=== PATIENT | female | born 1955 | race Caucasian/White ===

== ENCOUNTER → 2017-02-13 | Outpatient (CLI) | payer BC ==
[~2017-02-13] MED LIST: ASPI81TA85 PO; CALCTAB68 PO; DRIS50002 PO; LISI20TA PO; MELO15TA4 PO; METO-209 PO; NORV5TAB PO; PRAV10TA PO; ULTR50TA PO; ZOLO100T PO
--- NOTE | 2017-02-13 11:26 | REP ---
BILATERAL MAMMOGRAM: FAMILY HISTORY: Breast cancer in sister and maternal grandmother. Bilateral mammography performed in the MLO and CC projections. Comparison made with multiple prior exams most recent of which is 02/14/2016. No mass is seen and there is no architectural distortion bilaterally. Focal tiny calcifications are seen in the upper inner left breast. Recommend magnification views to further evaluate. IMPRESSION: ACR 0 incomplete. Focal tiny calcifications in the upper inner left breast. Recommend magnification views to further evaluate. This mammogram was interpreted with the aid of an FDA-approved computer-aided detection system. The patient states she/he had a clinical breast exam in 01/2017. The patient letter being requested is M0.
== END ==
LOC: M WHC 09:29
PROVIDERS: ATTEND Nurse Practitioner Family
DX: Z12.31 Encounter for screening mammogram for malignant neoplasm of breast (principal); R92.8 Other abnormal and inconclusive findings on diagnostic imaging of breast

== ENCOUNTER → 2017-02-13 | Outpatient (REF) | payer BC | LOC: M SFHCWAGY 10:09 | PROVIDERS: ATTEND Nurse Practitioner Family | DX: Z12.4 Encounter for screening for malignant neoplasm of cervix (principal) ==

== ENCOUNTER → 2017-02-19 | Outpatient (CLI) | payer BC ==
--- NOTE | 2017-02-19 11:20 | REP ---
DIAGNOSTIC MAMMOGRAM LEFT BREAST: Multiple magnification views left breast performed and correlated with recent mammogram 02/13/2017. There are clustered microcalcifications in the upper inner left breast which are pleomorphic and not definitely benign. Recommend stereotactic biopsy. IMPRESSION: ACR IV suspicious. Clustered pleomorphic microcalcifications in the upper inner left breast. Recommend stereotactic biopsy. BI-RADS/ACR category 4 mammogram. Suspicious abnormality - biopsy should be considered. Usually requires biopsy. This mammogram was interpreted with the aid of an FDA-approved computer-aided detection system. A. Negative x-ray reports should not delay biopsy if a dominant or clinically suspicious mass is present. B. Four to eight percent of cancers are not identified by x-ray. C. Adenosis and dense breasts may obscure an underlying neoplasm. The patient letter being requested is M4. Signed by John Riojas MD 02/19/2017 05:12 P
== END ==
LOC: M RAD 09:52
PROVIDERS: ATTEND Nurse Practitioner Family
DX: R92.8 Other abnormal and inconclusive findings on diagnostic imaging of breast (principal)

== ENCOUNTER → 2017-03-18 | Outpatient (CLI) | payer BC ==
[~2017-03-18] MED LIST changes: +LIDOCAINE 1% MDV 20ML VIAL As Ordered ONE; -METO-209 PO; +METO1TAB33 PO; -PRAV10TA PO; +PRAV10TA4 PO; -ULTR50TA PO; +ULTR50TA8 PO
--- NOTE | 2017-03-18 13:45 | REP ---
DIGITAL DIAGNOSTIC UNILATERAL LEFT BREAST MAMMOGRAPHY WITH CAD: Two views. HISTORY: Marker clip placement views. The patient is status post stereotactic needle biopsy for microcalcific grouping. Comparison mammography February 19, 2017 and February 13, 2017. MAMMOGRAPHIC FINDINGS: The marker clip is in good position. There is a 2.8 cm nodule at the biopsy site consistent with a hematoma. The microcalcifications are no longer visible. IMPRESSION: Marker clip in good position. A small hematoma seen. Microcalcifications no longer visible. Signed by López Perales MD 03/18/2017 02:31 P
--- NOTE | 2017-03-18 13:58 | REP ---
SPECIMEN RADIOGRAPHY, LEFT BREAST SPECIMEN: SINGLE VIEW HISTORY: Stereotactic needle biopsy for microcalcification. FINDINGS: Specimen radiography demonstrates that specimen tube #2 contains the entire grouping of polymorphic microcalcifications from prior diagnostic mammography. IMPRESSION: Specimen radiography shows the microcalcific target within the specimen #2. Signed by López Perales MD 03/18/2017 02:31 P
--- NOTE | 2017-03-18 16:44 | REP ---
STEREOTACTIC LEFT BREAST BIOPSY: The procedure was performed under the direct supervision of Dr. Perales. The patient has a history of clustered pleomorphic microcalcifications in the upper inner to left breast seen on a previous mammogram dated 02/19/2017. The risks and benefits of the procedure were explained to the patient and informed consent was obtained. A cranial caudal approach was utilized. The calcifications were localized using stereotactic mammographic guidance. The skin was prepped and draped in a sterile fashion 1% Xylocaine was used as a local anesthetic. An 8-gauge suction assisted Mammotome needle was inserted and 6 core biopsy samples were obtained. Specimen radiograph demonstrates the calcifications to be within the specimen. A marker clip was placed at the biopsy site. The patient tolerated the procedure well and there were no immediate complications. After the appropriate amount of monitored convalescence the patient was discharged from the department. Reviewed by ARELY Lynch 03/19/2017 04:25 PEdited and Signed by López Perales MD 03/19/2017 04:44 P
== END ==
LOC: M RADPRO 11:57
PROVIDERS: ATTEND Surgery
DX: D24.2 Benign neoplasm of left breast (principal); Z87.891 Personal history of nicotine dependence; Z88.0 Allergy status to penicillin; Z79.82 Long term (current) use of aspirin; Z79.899 Other long term (current) drug therapy

== ENCOUNTER → 2018-02-22 | Outpatient (CLI) | payer OTHER | LOC: M WHC 09:43 | DX: Z12.31 Encounter for screening mammogram for malignant neoplasm of breast (principal); Z01.419 Encounter for gynecological examination (general) (routine) without abnormal findings (principal); Z78.0 Asymptomatic menopausal state; Z85.42 Personal history of malignant neoplasm of other parts of uterus; Z80.3 Family history of malignant neoplasm of breast; Z92.89 Personal history of other medical treatment; N89.8 Other specified noninflammatory disorders of vagina; Z12.12 Encounter for screening for malignant neoplasm of rectum | CPT/HCPCS: 77067; G0123 ==

== ENCOUNTER → 2018-02-22 | Outpatient (REF) | payer OTHER | LOC: M SFHCWAGY 09:59 | DX: Z01.419 Encounter for gynecological examination (general) (routine) without abnormal findings (principal); N89.8 Other specified noninflammatory disorders of vagina | CPT/HCPCS: G0123 ==

== ENCOUNTER → 2019-02-23 | Outpatient (REF) | payer MEDICARE ==
[~2019-02-23] MED LIST changes: +ALEV220T22 PO; +CALCCAP4 PO; -DRIS50002 PO; +DRIS50003 PO; +EFFE150C2 PO; -LIDOCAINE 1% MDV 20ML VIAL As Ordered ONE; +MELO15TA28 PO; -MELO15TA4 PO
== END ==
LOC: M SFHCWAGY 10:09
PROVIDERS: ATTEND Nurse Practitioner Family
DX: Z12.4 Encounter for screening for malignant neoplasm of cervix (principal); Z77.9 Other contact with and (suspected) exposures hazardous to health

== ENCOUNTER → 2019-02-23 | Outpatient (CLI) | payer MEDICARE ==
--- NOTE | 2019-02-23 12:06 | REPMRS ---
Patient History The patient states she had a clinical breast exam in 01/2019. Patient is postmenopausal and has history of endometrial cancer at age 57. Family history of breast cancer at age 48 in sister, breast cancer at age 50 or over in maternal grandmother, breast cancer at age 63 in sister. Benign radio exam breast specimen of the left breast, March 18, 2017. Benign stereotatic loc for ea lesion of the left breast, March 18, 2017. No Hormone Replacement Therapy Digital Woman Screen Mammo: February 23, 2019 - Exam #: [id number] Bilateral CC and MLO view(s) were taken. Technologist: Fatoumata Go, Technologist Prior study comparison: February 22, 2018, bilateral digital woman screen mammo performed at [facility]. February 19, 2017, left breast digital mammo diagnostic unilateral, performed at [facility]. FINDINGS: There are scattered fibroglandular densities. Bilateral screening digital mammogram with tomosynthesis: Additionally the prior study of 01/09/2014 is reviewed. The patient states that there are no palpable abnormalities or other breast complaints. The patient's Tyrer-Cuzieck Lifetime Breast Carcinoma Risk is:15.4%. There is no interval development of dominant mass, areas of architectural distortion, or clustered microcalcification typical of malignancy. There is a biopsy marking clip with a small adjacent parenchymal scar superomedially in the left breast, unchanged from 02/22/2018. There are no additional findings on tomosynthesis. No significant changes when compared with prior studies. Assessment: BI-RADS/ACR category 1 mammogram. Negative Mammogram. Recommendation Routine screening mammogram in 1 year (for women over age 40). This mammogram was interpreted with the aid of an FDA-approved computer-aided dectection system. A. Negative x-ray reports should not delay biopsy if a dominant or clinically suspicious mass is present. B. Not all cancers are identified by mammography. C. Adenosis and dense breast may obscure an underlying neoplasm. Electronically Signed By: John Gutierrez M.D. 02/23/19 [id number]
--- NOTE | 2019-02-24 15:16 | DEXA ---
AP SPINE L1 - L4 1.367 1.4 3.0 LT FEMUR TOTAL 0.978 -0.2 1.0 LT NECK 0.961 -0.6 0.9 RT FEMUR TOTAL 0.843 -1.3 -0.1 RT NECK 0.789 -1.8 -0.3 TOTAL BODY TOTAL OTHER COMMENTS: Normal bone densitometry of the spine. Normal bone densitometry of the left hip. There is low bone density of the right hip. The density of the spine has increased 23.3% since the initial exam on 06/06/2008. The spine density has increased 8.9% since the most recent exam on 11/14/2011. The density of the left hip has decreased 7.6% since the initial exam on 06/06/2008. The density of the left hip has decreased 10.3% since the most recent exam on 11/14/2011. The density of the right hip has decreased 10.8% since the initial exam on 06/06/2008. The density of the right hip has decreased 12.3% since the most recent exam on 11/04/2011. FOLLOW-UP: Recommendation for the next bone density exam: 2 years. KERRY
== END ==
LOC: M WHC 09:38
PROVIDERS: ATTEND Nurse Practitioner Family
DX: Z12.31 Encounter for screening mammogram for malignant neoplasm of breast (principal); N95.9 Unspecified menopausal and perimenopausal disorder; Z78.0 Asymptomatic menopausal state; Z85.44 Personal history of malignant neoplasm of other female genital organs; Z80.3 Family history of malignant neoplasm of breast; Z86.018 Personal history of other benign neoplasm; Z91.89 Other specified personal risk factors, not elsewhere classified; Z85.42 Personal history of malignant neoplasm of other parts of uterus; Z12.12 Encounter for screening for malignant neoplasm of rectum; Z08 Encounter for follow-up examination after completed treatment for malignant neoplasm; Z90.710 Acquired absence of both cervix and uterus
CPT/HCPCS: 77063; 77067; 77080; 82270; G0101; G0123

== ENCOUNTER → 2019-09-23 | Outpatient (CLI) | payer MEDICARE ==
[~2019-09-23] MED LIST changes: -LISI20TA PO; +LISI20TA19 PO
--- NOTE | 2019-09-23 11:30 | REP ---
Three-phase bone scan of the knees: History: Right knee pain. The patient relates a fall 1-1/2 months ago. Bilateral knee replacements approximately 5 years ago. Technique: 21.7 mCi technetium 99m MDP is injected and standard three-phase imaging of the knees is acquired. Scintigraphic findings: Anterior and posterior flow images and blood pool images demonstrate mild hyperemia about the components of the right knee arthroplasty compared to the left. On delayed scan images, there is asymmetry as well with increased uptake at the prosthesis bone interface for the femoral component of the right knee arthroplasty. This is significantly more avid than the interface on the left. There is also increased uptake at the tibial component interface asymmetrically with the right but this is less compelling. Impression: Asymmetric increased uptake about the right knee arthroplasty involving the femoral and to a lesser extent tibial components. I cannot exclude loosening or perhaps stress injury. The distal femoral uptake is as prominent medially as it is laterally. Electronically Signed by López Perales MD 09/23/2019 06:35 P
== END ==
LOC: M RAD 07:26
PROVIDERS: ATTEND Orthopaedic Surgery
DX: M25.561 Pain in right knee (principal); Z47.1 Aftercare following joint replacement surgery
CPT/HCPCS: 78315; A9503

== ENCOUNTER 2020-03-25 08:20 | Inpatient (IN) | payer MEDICARE ==
[~2020-03-25 08:20] MED LIST changes: -ASPI81TA85 PO; +ASPI81TA86 PO; -LISI20TA19 PO; +LISI20TA35 PO
[2020-03-25] MEDS ORDERED: PANTOPRAZOLE 40MG VIAL (C9113 PER 1) ONE ×2 (11:59→21:14)
[2020-03-25] MEDS ORDERED: ONDANSETRON 4MG/2ML VIAL ONE (21:14)
[2020-03-25] MEDS ORDERED: PRAVASTATIN 20 MG TAB ONE (21:14)
[2020-03-26] MEDS ORDERED: ACETAMINOPHEN TAB 650MG DOSE (2X325MG) ONE ×2 (00:05→20:46)
[2020-03-26] MEDS ORDERED: PANTOPRAZOLE 40MG VIAL (C9113 PER 1) ONE ×5 (02:26→20:46)
[2020-03-26] MEDS ORDERED: VENLAFAXINE **XR** 75MG CAPSULE ONE (09:38)
[2020-03-26] MEDS ORDERED: PRAVASTATIN 10 MG TAB ONE (13:00)
[2020-03-26] MEDS ORDERED: POTASSIUM CHLORIDE 10 MEQ SR TABLET ONE (13:52)
[2020-03-26] MEDS ORDERED: ONDANSETRON 4MG/2ML VIAL ONE (15:03)
[2020-03-26] MEDS ORDERED: PRAVASTATIN 20 MG TAB ONE (20:46)
[2020-03-27] MEDS ORDERED: ACETAMINOPHEN TAB 650MG DOSE (2X325MG) ONE (00:32)
[2020-03-27] MEDS ORDERED: GABAPENTIN 400 MG CAP ONE (00:32)
[2020-03-27] MEDS ORDERED: LEVEMIR (INSULIN DETEMIR) 1 UNITS/0.01ML ONE (00:32)
[2020-03-27] MEDS ORDERED: PANTOPRAZOLE 40MG VIAL (C9113 PER 1) ONE ×2 (02:02→07:50)
[2020-03-27] MEDS ORDERED: POTASSIUM CHLORIDE 10 MEQ SR TABLET ONE (09:16)
[2020-03-27] MEDS ORDERED: VENLAFAXINE **XR** 75MG CAPSULE ONE (09:16)
[2020-04-29 07:14] LABS: HEMATOCRIT 39.3 % (36.0-47.0); HEMOGLOBIN 12.7 g/dl (12.0-15.5); MEAN CORPUSCULAR HEMOGLOBIN 28.5 pg (27.0-33.0); MEAN CORPUSCULAR HGB CONC 32.3 g/dl (32.0-36.5); MEAN CORPUSCULAR VOLUME 88.3 fl (80.0-96.0); PLATELET COUNT, AUTOMATED 262 10^3/uL (150-450); RED BLOOD COUNT 4.45 10^6/uL (4.00-5.40); WHITE BLOOD COUNT 9.7 10^3/uL (4.0-10.0)
[2020-05-02 11:49] LABS: HEMATOCRIT 37.2 % (36.0-47.0); MEAN CORPUSCULAR HEMOGLOBIN 28.6 pg (27.0-33.0); MEAN CORPUSCULAR HGB CONC 32.3 g/dl (32.0-36.5); MEAN CORPUSCULAR VOLUME 88.8 fl (80.0-96.0); PLATELET COUNT, AUTOMATED 259 10^3/uL (150-450); RED BLOOD COUNT 4.19 10^6/uL (4.00-5.40); WHITE BLOOD COUNT 8.6 10^3/uL (4.0-10.0)
[2020-05-03 06:49] LABS: HEMATOCRIT 31.5 % (36.0-47.0); HEMOGLOBIN 10.1 g/dl (12.0-15.5); MEAN CORPUSCULAR HEMOGLOBIN 28.9 pg (27.0-33.0); MEAN CORPUSCULAR HGB CONC 32.1 g/dl (32.0-36.5); MEAN CORPUSCULAR VOLUME 90.3 fl (80.0-96.0); PLATELET COUNT, AUTOMATED 208 10^3/uL (150-450); RED BLOOD COUNT 3.49 10^6/uL (4.00-5.40)
[2020-05-03 06:49] LABS: HEMOGLOBIN 10.6 g/dl (12.0-15.5); MEAN CORPUSCULAR HEMOGLOBIN 28.8 pg (27.0-33.0); MEAN CORPUSCULAR HGB CONC 32.1 g/dl (32.0-36.5); MEAN CORPUSCULAR VOLUME 89.7 fl (80.0-96.0); PLATELET COUNT, AUTOMATED 202 10^3/uL (150-450); RED BLOOD COUNT 3.68 10^6/uL (4.00-5.40)
[2020-05-03 06:49] LABS: HEMATOCRIT 35.4 % (36.0-47.0); HEMOGLOBIN 11.5 g/dl (12.0-15.5); MEAN CORPUSCULAR HEMOGLOBIN 28.8 pg (27.0-33.0); MEAN CORPUSCULAR HGB CONC 32.5 g/dl (32.0-36.5); MEAN CORPUSCULAR VOLUME 88.7 fl (80.0-96.0); PLATELET COUNT, AUTOMATED 251 10^3/uL (150-450); RED BLOOD COUNT 3.99 10^6/uL (4.00-5.40); WHITE BLOOD COUNT 9.6 10^3/uL (4.0-10.0)
[2020-05-03 06:59] LABS: HEMATOCRIT 32.9 % (36.0-47.0); HEMOGLOBIN 10.6 g/dl (12.0-15.5); MEAN CORPUSCULAR HGB CONC 32.2 g/dl (32.0-36.5); MEAN CORPUSCULAR VOLUME 89.9 fl (80.0-96.0); PLATELET COUNT, AUTOMATED 204 10^3/uL (150-450); RED BLOOD COUNT 3.66 10^6/uL (4.00-5.40); WHITE BLOOD COUNT 5.9 10^3/uL (4.0-10.0)
[2020-05-03 07:01] LABS: HEMATOCRIT 30.7 % (36.0-47.0); HEMOGLOBIN 9.8 g/dl (12.0-15.5); MEAN CORPUSCULAR HEMOGLOBIN 28.7 pg (27.0-33.0); MEAN CORPUSCULAR HGB CONC 31.9 g/dl (32.0-36.5); MEAN CORPUSCULAR VOLUME 89.8 fl (80.0-96.0); PLATELET COUNT, AUTOMATED 183 10^3/uL (150-450); RED BLOOD COUNT 3.42 10^6/uL (4.00-5.40); WHITE BLOOD COUNT 5.4 10^3/uL (4.0-10.0)
[2020-05-04] MEDS ORDERED: PROT20TA11 PO (14:36)
[2020-05-04] MEDS ORDERED: ACET500T15 PO (14:36)
[2020-05-08 00:03] LABS: HEMATOCRIT 30.9 % (36.0-47.0); HEMOGLOBIN 9.9 g/dl (12.0-15.5); MEAN CORPUSCULAR HEMOGLOBIN 28.9 pg (27.0-33.0); MEAN CORPUSCULAR VOLUME 90.1 fl (80.0-96.0); PLATELET COUNT, AUTOMATED 182 10^3/uL (150-450); RED BLOOD COUNT 3.43 10^6/uL (4.00-5.40); WHITE BLOOD COUNT 4.5 10^3/uL (4.0-10.0)
[2020-05-10 18:43] LABS: BLOOD UREA NITROGEN 10 MG/DL (7-18); CALCIUM LEVEL 8.4 MG/DL (8.8-10.2); CARBON DIOXIDE LEVEL 26 MEQ/L (21-32); CHLORIDE LEVEL 117 MEQ/L (98-107); CREATININE FOR GFR 0.52 MG/DL (0.55-1.30); GLOMERULAR FILTRATION RATE > 60.0 (>45); GLUCOSE, FASTING 112 MG/DL (70-100); MAGNESIUM LEVEL 1.8 MG/DL (1.8-2.4); POTASSIUM SERUM 3.6 MEQ/L (3.5-5.1); SODIUM LEVEL 150 MEQ/L (136-145)
[2020-05-16 22:31] LABS: BLOOD UREA NITROGEN 26 MG/DL (7-18); CALCIUM LEVEL 8.4 MG/DL (8.8-10.2); CARBON DIOXIDE LEVEL 24 MEQ/L (21-32); CHLORIDE LEVEL 115 MEQ/L (98-107); CREATININE FOR GFR 0.62 MG/DL (0.55-1.30); GLOMERULAR FILTRATION RATE > 60.0 (>45); GLUCOSE, FASTING 115 MG/DL (70-100); POTASSIUM SERUM 3.4 MEQ/L (3.5-5.1); SODIUM LEVEL 145 MEQ/L (136-145)
[2020-05-16 22:32] LABS: MAGNESIUM LEVEL 1.8 MG/DL (1.8-2.4)
[2020-05-16 22:34] LABS: BLOOD UREA NITROGEN 45 MG/DL (7-18); CREATININE FOR GFR 0.76 MG/DL (0.55-1.30); GLOMERULAR FILTRATION RATE > 60.0 (>45); GLUCOSE, FASTING 153 MG/DL (70-100); SODIUM LEVEL 144 MEQ/L (136-145)
[2020-05-16 22:35] LABS: CALCIUM LEVEL 8.7 MG/DL (8.8-10.2); CARBON DIOXIDE LEVEL 27 mmol/L (20-29); CHLORIDE LEVEL 112 MEQ/L (98-107); POTASSIUM SERUM 3.8 MEQ/L (3.5-5.1); TROPONIN I < 0.02 NG/ML (< 0.10)
--- NOTE | 2020-05-18 07:06 | ECGEPIP ---
ATRIAL FIBRILLATION NONSPECIFIC ST & T-WAVE CHANGES SEE SCANNED DOWNTIME REPORT MTDD
--- NOTE | 2020-05-18 11:08 | REP ---
SINGLE VIEW CHEST X-RAY: HISTORY: Unavailable. Report was delayed due to a malware attack on this facility. COMPARISON: No comparison chest x-ray. FINDINGS: Monitoring electrodes are seen. The lungs are well-inflated and free of infiltrate. The pleural angles are sharp. The heart is at the upper range of normal in size. Pulmonary vasculature is not increased. The aorta is somewhat tortuous. IMPRESSION: No acute disease. MTDD
== END 2020-03-27 14:00 | disposition home or self-care (01) | DRG 378 ==
LOC: M ED 08:20 → M PCU 15:00
PROVIDERS: ADMIT Internal Medicine; ATTEND Internal Medicine
DX: K92.2 Gastrointestinal hemorrhage, unspecified (principal); I48.20 Chronic atrial fibrillation, unspecified; E87.1 Hypo-osmolality and hyponatremia; D64.9 Anemia, unspecified; I10 Essential (primary) hypertension; F41.9 Anxiety disorder, unspecified; F32.9 Major depressive disorder, single episode, unspecified; Z79.899 Other long term (current) drug therapy; Z79.01 Long term (current) use of anticoagulants

== ENCOUNTER → 2020-05-02 | Outpatient (CLI) | payer MEDICARE ==
[~2020-05-02] MED LIST changes: +ACET500T15 PO; +PROT20TA11 PO
[2020-05-02 11:25] LABS: BASO % 0.2 % (0.0-1.0); EOS # 0.1 10^3/uL (0.0-0.5); EOS % 1.2 % (0.0-3.0); HEMATOCRIT 42.9 % (36.0-47.0); HEMOGLOBIN 13.5 g/dl (12.0-15.5); LYMPH # 1.4 10^3/uL (1.5-5.0); LYMPH % 22.1 % (24.0-44.0); MEAN CORPUSCULAR HEMOGLOBIN 27.3 pg (27.0-33.0); MEAN CORPUSCULAR HGB CONC 31.5 g/dl (32.0-36.5); MEAN CORPUSCULAR VOLUME 86.7 fl (80.0-96.0); MONO # 0.6 10^3/uL (0.0-0.8); MONO % 8.7 % (0.0-5.0); NEUTROPHILS # 4.4 10^3/uL (1.5-8.5); NEUTROPHILS % 67.6 % (36.0-66.0); PLATELET COUNT, AUTOMATED 343 10^3/uL (150-450); RED BLOOD COUNT 4.95 10^6/uL (4.00-5.40); WHITE BLOOD COUNT 6.5 10^3/uL (4.0-10.0)
[2020-05-02 12:19] LABS: ALBUMIN 3.8 GM/DL (3.2-5.2); ALT/SGPT 21 U/L (12-78); BILIRUBIN,TOTAL 0.4 MG/DL (0.2-1.0); BLOOD UREA NITROGEN 16 MG/DL (7-18); CALCIUM LEVEL 10.1 MG/DL (8.8-10.2); CARBON DIOXIDE LEVEL 31 MEQ/L (21-32); CHLORIDE LEVEL 106 MEQ/L (98-107); CREATININE FOR GFR 0.89 MG/DL (0.55-1.30); FOLATE 8.6 NG/ML; GLOMERULAR FILTRATION RATE > 60.0 (>45); GLUCOSE, FASTING 115 MG/DL (70-100); IRON (FE) 36 UG/DL (50-170); PERCENT SATURATION 8.8 % (13.2-45.0); SODIUM LEVEL 140 MEQ/L (136-145); TOTAL IRON BINDING CAPACITY 409 UG/DL (250-450); TOTAL PROTEIN 7.1 GM/DL (6.4-8.2); VITAMIN B12 LEVEL 418 PG/ML
== END ==
LOC: M LAB 10:26
PROVIDERS: ATTEND Internal Medicine Gastroenterology
DX: D64.9 Anemia, unspecified (principal)

== ENCOUNTER → 2020-05-03 | Outpatient (CLI) | payer MEDICARE | LOC: M LABSMTC 13:32 | PROVIDERS: ATTEND Anesthesiology | DX: Z01.818 Encounter for other preprocedural examination (principal); Z20.828 Contact with and (suspected) exposure to other viral communicable diseases | CPT/HCPCS: C9803; U0003 ==

== ENCOUNTER 2020-05-08 09:09 | Day surgery (SDC) | payer MEDICARE ==
[~2020-05-08] VITALS: Ht 154.9 cm; Wt 99.3 kg
[2020-05-08] MEDS ORDERED: NS 1,000 ML IV ONE (10:00)
[2020-05-08] MEDS ORDERED: METOPROLOL 5 MG/5 ML VIAL As Ordered ONE (10:00)
[2020-05-08] MEDS ORDERED: LIDOCAINE 2% 100MG/5ML SDV (FOR ANES.) As Ordered ONE (10:02)
[2020-05-08] MEDS ORDERED: propofoL 200 MG/20 ML VIAL As Ordered ONE ×2 (10:02→10:33)
[2020-05-08 11:05] VITALS: BP 101/50
--- NOTE | 2020-05-09 11:38 | ROOR ---
Patient Name: Patt Willams Procedure Date: 05/08/2020 9:08 AM Date of : 1955 Age: 65 Room: [facility] Gender: Female Note Status: Finalized Procedure: Upper GI endoscopy Indications: Acute post hemorrhagic anemia Providers: Boris REINA MD Referring MD: Cj Martins MD Requesting Provider: Medicines: Monitored Anesthesia Care Complications: No immediate complications. Procedure: Pre-Anesthesia Assessment: - The heart rate, respiratory rate, oxygen saturations, blood pressure, adequacy of pulmonary ventilation, and response to care were monitored throughout the procedure. The Endoscope was introduced through the mouth, and advanced to the second part of duodenum. The upper GI endoscopy was accomplished without difficulty. The patient tolerated the procedure well. Findings: The esophagus and gastroesophageal junction were examined with white light and narrow band imaging (NBI) from a forward view and retroflexed position. There were esophageal mucosal changes suspicious for long-segment Dominguez's esophagus. These changes involved the mucosa at the upper extent of the gastric folds (37 cm from the incisors) extending to the Z-line (34 cm from the incisors). Circumferential salmon-colored mucosa was present from 34 to 37 cm and no visible abnormalities were present. The maximum longitudinal extent of these esophageal mucosal changes was 3 cm in length. Mucosa was biopsied with a cold forceps for histology randomly from 34 to 37 cm from the incisors. One specimen bottle was sent to pathology. A medium-sized hiatal hernia was present. Prepyloric deformity/Evidence of a recently healed gastric ulcer was found in the prepyloric region of the stomach. The ulcer has completely healed over. Biopsies were taken with a cold forceps for histology and for H pylori. The examined duodenum was normal. Impression: - Esophageal mucosal changes suspicious for long-segment Dominguez's esophagus. Biopsied. - Medium-sized hiatal hernia. - Evidence of a recently healed gastric ulcer. Biopsied. - Normal examined duodenum. Recommendation: - Use Prilosec (omeprazole) 20 mg PO BID indefinitely. - Telephone endoscopist for pathology results in 2 weeks. - Resume Xarelto (rivaroxaban) at prior dose today. Refer to referring physician for further adjustment of therapy. Boris Reina MD Boris REINA MD 05/08/2020 10:35:38 AM Electronically signed by Boris REINA MD Number of Addenda: 0 Note Initiated On: 05/08/2020 9:08 AM Estimated Blood Loss: Estimated blood loss: none.
--- NOTE | 2020-05-09 11:38 | ROOR ---
Patient Name: Patt Willams Procedure Date: 05/08/2020 9:09 AM Date of : 1955 Age: 65 Room: [facility] Gender: Female Note Status: Finalized Procedure: Colonoscopy Indications: Acute post hemorrhagic anemia Providers: Boris REINA MD Referring MD: Cj Martins MD Requesting Provider: Medicines: Monitored Anesthesia Care Complications: No immediate complications. Procedure: Pre-Anesthesia Assessment: - The heart rate, respiratory rate, oxygen saturations, blood pressure, adequacy of pulmonary ventilation, and response to care were monitored throughout the procedure. The Colonoscope was introduced through the anus and advanced to the terminal ileum, with identification of the appendiceal orifice and IC valve. The colonoscopy was performed without difficulty. The patient tolerated the procedure well. The quality of the bowel preparation was good. Findings: The perianal and digital rectal examinations were normal. A few small-mouthed diverticula were found in the sigmoid colon. There was no evidence of diverticular bleeding. Small Internal Hemorrhoids. The exam was otherwise without abnormality on direct and retroflexion views. Impression: - Mild diverticulosis in the sigmoid colon. - Small Internal Hemorrhoids. - The colon examination was otherwise normal on direct and retroflexion views. - No specimens collected. Recommendation: - Resume Xarelto (rivaroxaban) at prior dose today. Refer to referring physician for further adjustment of therapy. Boris Reina MD Boris REINA MD 05/08/2020 10:38:06 AM Electronically signed by Boris REINA MD Number of Addenda: 0 Note Initiated On: 05/08/2020 9:09 AM Estimated Blood Loss: Estimated blood loss: none.
== END 2020-05-08 12:02 | disposition home or self-care (01) ==
LOC: M OPP 09:09
PROVIDERS: ATTEND Internal Medicine Gastroenterology
DX: K57.30 Diverticulosis of large intestine without perforation or abscess without bleeding (principal); D62 Acute posthemorrhagic anemia; K64.8 Other hemorrhoids; K92.1 Melena; K22.8 Other specified diseases of esophagus; K44.9 Diaphragmatic hernia without obstruction or gangrene; K25.9 Gastric ulcer, unspecified as acute or chronic, without hemorrhage or perforation; I48.91 Unspecified atrial fibrillation; E11.9 Type 2 diabetes mellitus without complications; Z79.899 Other long term (current) drug therapy; Z88.0 Allergy status to penicillin; Z88.6 Allergy status to analgesic agent; Z85.42 Personal history of malignant neoplasm of other parts of uterus

== ENCOUNTER → 2021-02-12 | Outpatient (CLI) | payer MEDICARE ==
--- NOTE | 2021-02-12 11:04 | REPMRS ---
Patient History The patient states she had a clinical breast exam in January 2021. Family history of breast cancer at age 48 in sister, breast cancer at age 50 or over in maternal grandmother, breast cancer at age 63 in sister. Benign radio exam breast specimen of the left breast, March 18, 2017. Benign stereotatic loc for ea lesion of the left breast, March 18, 2017. No Hormone Replacement Therapy Tomosynthesis is performed. Volpara breast density is b. Tyrer-zick lifetime risk of breast cancer 13.7%. Moderna vaccine 10/25/20 left arm. 11/19/20 right arm. 12 LB intentional weight loss. Patient states no breast complaints today. Patient has signed MRS History Sheet. Digital Woman Screen Mammo: February 12, 2021 - Exam #: [id number] Bilateral CC and MLO view(s) were taken. Technologist: RT Christine Prior study comparison: February 23, 2019, bilateral digital woman screen mammo performed at [facility]. February 22, 2018, bilateral digital woman screen mammo performed at [facility]. FINDINGS: There are scattered fibroglandular densities. There has been no change in the appearance of the mammogram from the prior studies. There is a mild amount of residual fibroglandular tissue which is fairly symmetric. There is no interval development of dominant mass, architectural distortion, or clustered microcalcification suggestive of malignancy. Assessment: BI-RADS/ACR category 1 mammogram. Negative Mammogram. Recommendation Routine screening mammogram in 1 year (for women over age 40). This mammogram was interpreted with the aid of an FDA-approved computer-aided dectection system. Electronically Signed By: John Riojas MD 02/12/21 [id number]
== END ==
LOC: M WHC 09:13
PROVIDERS: ATTEND Advanced Practice Midwife
DX: Z12.31 Encounter for screening mammogram for malignant neoplasm of breast (principal); Z80.3 Family history of malignant neoplasm of breast; Z86.018 Personal history of other benign neoplasm

== ENCOUNTER → 2021-02-12 | Outpatient (REF) | payer MEDICARE | LOC: M SFHCWAGY 13:24 | PROVIDERS: ATTEND Advanced Practice Midwife | DX: Z01.419 Encounter for gynecological examination (general) (routine) without abnormal findings (principal); Z85.42 Personal history of malignant neoplasm of other parts of uterus ==

== ENCOUNTER → 2021-03-06 | Outpatient (CLI) | payer MEDICARE ==
--- NOTE | 2021-03-07 14:49 | SLEEPHOME ---
DATE: 03/06/2021 ORDERED BY: Felipa Oakley Diagnostic home sleep testing was performed due to concern for the obstructive sleep apnea syndrome. For testing, a nocturnal T3 respiratory monitoring device was used. Continuous record was made of pulse, oxygen saturation, air flow, chest and abdominal strain, and body position. There was 9 hours and 59 minutes of data reviewed. There was 9 hours and 5 minutes marked as time in bed. During the interval marked time in bed, there were 297 respiratory events identified of 10 seconds in duration or greater for a respiratory event index of 32.7. The events were primarily obstructive. Thirty-four mixed and central apneas were seen. Baseline pulse rate 70. Pulse rate ranged 44-134. Baseline saturation was 96%. Saturations fell as low as 51%. Testing was performed in both the supine and nonsupine positions. IMPRESSION: Abnormal home sleep testing with repetitive respiratory events and oxygen desaturations to 51% with a respiratory event index of 32.7 is consistent with the obstructive sleep apnea syndrome. RECOMMENDATION: The patient should be encouraged to undergo formal sleep evaluation.
== END ==
LOC: M SLEEP HO 10:27
PROVIDERS: ATTEND Nurse Practitioner Family
DX: R06.83 Snoring (principal)

== ENCOUNTER → 2021-04-27 | Outpatient (CLI) | payer MEDICARE ==
--- NOTE | 2021-04-30 09:03 | SLEEPCENT ---
DATE: 04/27/2021 ORDERED BY: CHRISTOS Orozco Nocturnal polysomnography was performed for the titration of pressure therapy in this patient with a clinical diagnosis of obstructive sleep apnea syndrome supported by home testing revealing respiratory event index of 32.7. For testing a ResMed F20 full face mask of small size was used, 4 cm of water pressure were applied to the circuit, and the lights were extinguished. Eight hours and 28 minutes of data were reviewed. There were 339.5 minutes of sleep identified. Sleep latency was prolonged at 88.5 minutes. REM latency was prolonged at 269 minutes. Sleep architecture improved late in the study on optimal pressure therapy and there was one REM cycle. Overall sleep efficiency was 67.8%. The electrocardiogram showed atrial fibrillation with a controlled ventricular response rate of 65 beats per minute. Rate ranged 50-85. EEG showed reasonably normal waveforms for wake and sleep. Respiratory events were fully palliated with CPAP at a pressure of 15. Significant limb activity was noted in the EMG leads throughout the early portion of the study. Limb movement arousal index on this occasion was 8. IMPRESSIONS: 1. Obstructive sleep apnea syndrome (G47.33). 2. Possible periodic limb movement disorder (G47.61). Limb movement arousal index 8. RECOMMENDATION: Nightly use of pressure therapy at 15 cm of water should be sufficient to address the patient's obstructive respiratory events. Should sleep symptoms persist, interventions to reduce the frequency of arousals from limb activity may also be helpful. cc: GATO SANCHES MD
== END ==
LOC: M SLEEP 20:00
PROVIDERS: ATTEND Nurse Practitioner Family
DX: G47.33 Obstructive sleep apnea (adult) (pediatric) (principal)

== ENCOUNTER → 2021-05-25 | Outpatient (CLI) | payer MEDICARE ==
[~2021-05-25] MED LIST changes: +ELIQ5TAB PO
== END ==
LOC: M LABSMTC 09:31
PROVIDERS: ATTEND Anesthesiology
DX: Z01.812 Encounter for preprocedural laboratory examination (principal); Z20.822 Contact with and (suspected) exposure to COVID-19

== ENCOUNTER 2021-05-30 06:57 | Day surgery (SDC) | payer MEDICARE ==
[~2021-05-30] VITALS: Ht 154.9 cm; Wt 100.2 kg
[~2021-05-30 06:57] MED LIST changes: +LR 1,000 ML IV ONE
[2021-05-30] MEDS ORDERED: dexameTHASONE 4 MG/ML 1ML VIAL (J1100 PER 1MG) As Ordered ONE (08:19)
[2021-05-30] MEDS ORDERED: propofoL 200 MG/20 ML VIAL As Ordered ONE (08:19)
[2021-05-30] MEDS ORDERED: fentaNYL 100 MCG/2 ML INJECTION (J3010) As Ordered ONE (08:19)
[2021-05-30] MEDS ORDERED: ROCURONIUM BROMIDE 50 MG/5 ML VIAL As Ordered ONE (08:19)
[2021-05-30] MEDS ORDERED: ONDANSETRON 4MG/2ML VIAL As Ordered ONE (08:19)
[2021-05-30] MEDS ORDERED: LIDOCAINE 2% 100MG/5ML SDV (FOR ANES.) As Ordered ONE (08:19)
[2021-05-30] MEDS ORDERED: SUGAMMADEX SODIUM 500 MG/5 ML VIAL (BRIDION) As Ordered ONE (08:19)
[2021-05-30] MEDS ORDERED: MIDAZOLAM INJ 2MG/2ML VIAL (J2250 PER 1MG) As Ordered ONE (08:20)
[2021-05-30] MEDS ORDERED: LIDOCAINE W/EPINEPHRINE 1% 20ML VIAL As Ordered ONE (09:40)
[2021-05-30] MEDS ORDERED: EPINEPHrine 1MG/ML INJ 30ML MD-VIAL As Ordered ONE ×2 (09:40→09:41)
[2021-05-30] MEDS ORDERED: METHYLENE BLUE 0.5% (5MG/ML) 10 ML AMP (PROVAYBLUE) As Ordered ONE (09:41)
[2021-05-30] MEDS ORDERED: CIPRODEX OTIC SUSP 7.5ML As Ordered ONE (09:41)
[2021-05-30] MEDS ORDERED: ONDANSETRON 4MG/2ML VIAL IV PRN (11:25)
[2021-05-30] MEDS ORDERED: fentaNYL 100 MCG/2 ML INJECTION (J3010) IV PRN (11:25)
[2021-05-30] MEDS ORDERED: LR 1,000 ML IV SCH ×2 (11:25)
[2021-05-30] MEDS ORDERED: oxyCODONE 5MG TAB PO PRN (11:25)
[2021-05-30 12:45] VITALS: BP 128/68
--- NOTE | 2021-05-30 13:23 | RO ---
OPERATIVE NOTE DATE OF OPERATION: 05/30/2021 PREOPERATIVE DIAGNOSIS: Eustachian tube obstruction POSTOPERATIVE DIAGNOSIS: Eustachian tube obstruction. PROCEDURE: Bilateral eustachian tube balloon dilation. SURGEON: ABILIO MERA MD DESCRIPTION OF PROCEDURE: Under general anesthesia, the patient was intubated, the patient was draped in the usual manner. . I used pledgets of adrenaline 1:100,000. Using the sinus endoscope, examined the posterior nasopharynx. I identified the eustachian tube opening. The balloon catheter was advanced into the eustachian tube without any difficulty. Once it was in position, then we inflated it to 12 mm of pressure. It was left for two minutes. The balloon was deflated. The __ looked good. The same procedure was performed on the left side. Patient tolerated the procedure well and transferred to the Recovery Room in excellent condition.
== END 2021-05-30 12:50 | disposition home or self-care (01) ==
LOC: M SDC 06:57
PROVIDERS: ATTEND Otolaryngology
DX: H68.103 Unspecified obstruction of Eustachian tube, bilateral (principal); H65.23 Chronic serous otitis media, bilateral; I48.91 Unspecified atrial fibrillation; I10 Essential (primary) hypertension; E11.9 Type 2 diabetes mellitus without complications; E78.5 Hyperlipidemia, unspecified; E55.9 Vitamin D deficiency, unspecified; Z88.0 Allergy status to penicillin; F41.9 Anxiety disorder, unspecified; F32.9 Major depressive disorder, single episode, unspecified; G47.33 Obstructive sleep apnea (adult) (pediatric); Z79.01 Long term (current) use of anticoagulants; Z79.899 Other long term (current) drug therapy; Z88.4 Allergy status to anesthetic agent
CPT/HCPCS: 69706; J1100; J2250; J2405; J3010; Q9968

== ENCOUNTER → 2022-01-16 | Outpatient (CLI) | payer MEDICARE ==
[~2022-01-16] MED LIST changes: -LR 1,000 ML IV ONE
== END ==
LOC: M RAD 09:49
PROVIDERS: ATTEND Family Medicine
DX: M25.752 Osteophyte, left hip (principal); M25.552 Pain in left hip; M48.07 Spinal stenosis, lumbosacral region; M51.36 Other intervertebral disc degeneration, lumbar region; M51.37 Other intervertebral disc degeneration, lumbosacral region

== ENCOUNTER 2022-02-23 21:12 | Emergency (ER) | payer MEDICARE ==
[~2022-02-23] VITALS: Ht 154.9 cm; Wt 99.5 kg
[2022-02-23 22:16] LABS: BASO % 0.1 % (0.0-1.0); EOS % 0.3 % (0.0-3.0); HEMATOCRIT 46.2 % (36.0-47.0); HEMOGLOBIN 14.2 g/dl (12.0-15.5); LYMPH % 8.1 % (24.0-44.0); MEAN CORPUSCULAR HEMOGLOBIN 27.2 pg (27.0-33.0); MEAN CORPUSCULAR HGB CONC 30.7 g/dl (32.0-36.5); MEAN CORPUSCULAR VOLUME 88.3 fl (80.0-96.0); MONO # 1.1 10^3/uL (0.0-0.8); MONO % 8.9 % (2.0-8.0); NEUTROPHILS % 81.5 % (36.0-66.0); PLATELET COUNT, AUTOMATED 263 10^3/uL (150-450); RED BLOOD COUNT 5.23 10^6/uL (4.00-5.40); WHITE BLOOD COUNT 12.3 10^3/uL (4.0-10.0)
[2022-02-23 22:33] LABS: INR 1.27; PROTHROMBIN TIME 16.3 SECONDS (12.7-14.5)
[2022-02-23 22:36] LABS: BILIRUBIN,DIRECT 0.2 MG/DL (0.0-0.2); BILIRUBIN,TOTAL 0.7 MG/DL (0.2-1.0); CALCIUM LEVEL 10.1 MG/DL (8.8-10.2); CREATININE FOR GFR 1.12 MG/DL (0.55-1.30); GLOMERULAR FILTRATION RATE 51.3 (>45); POTASSIUM SERUM 4.1 MEQ/L (3.5-5.1); TOTAL PROTEIN 6.3 GM/DL (6.4-8.2)
[2022-02-23 22:37] LABS: CK-MB VALUE MASS < 1.0 NG/ML (<3.6); CPK CREATINE PHOSPHOKINASE 31 U/L (26-192); MB/CK RELATIVE INDEX 3.23 (< OR =4)
[2022-02-23] MEDS ORDERED: NS 2,990 ML in IV 1 EA IV ONE (23:30)
[2022-02-24] MEDS ORDERED: ISOVUE-370 76% 100ML VIAL As Ordered ONE (00:12)
[2022-02-24 00:27] LABS: CK-MB VALUE MASS < 1.0 NG/ML (<3.6); CPK CREATINE PHOSPHOKINASE 21 U/L (26-192); MB/CK RELATIVE INDEX 4.76 (< OR =4)
[2022-02-24] MEDS ORDERED: MORPHINE 2 MG/ML 1ML VIAL IV ONE (00:40)
[2022-02-24] MEDS ORDERED: ENOXAPARIN 100MG/1ML SYRINGE (J1650 PER 10MG) SC ONE (01:00)
[2022-02-24] MEDS ORDERED: PERCOCET 5MG/325MG TAB PO ONE (04:25)
[2022-02-24] MEDS ORDERED: MORPHINE 4 MG/ML 1ML VIAL/SYRINGE IV ONE (04:25)
[2022-02-24 06:10] VITALS: BP 109/64
== END 2022-02-24 06:49 | disposition short-term general hospital (02) ==
LOC: M ED 21:12
DX: I82.402 Acute embolism and thrombosis of unspecified deep veins of left lower extremity (principal); R94.31 Abnormal electrocardiogram [ECG] [EKG]; E78.5 Hyperlipidemia, unspecified; I10 Essential (primary) hypertension; F32.A Depression, unspecified; Z88.0 Allergy status to penicillin; Z88.4 Allergy status to anesthetic agent; Z79.899 Other long term (current) drug therapy; Z79.811 Long term (current) use of aromatase inhibitors
CPT/HCPCS: 71045; 71275; 73590; 73700; 80048; 80076; 82550; 82553; 83880; 84484; 85025; 85610; 87040; 87486; 87581; 87633; 87798; 93005; 93041; 93971; 94760; 96361; 96374; 96375; 99285; J1650; J2270; Q9967

== ENCOUNTER 2022-03-08 13:13 | Emergency (ER) | payer MEDICARE ==
[~2022-03-08] VITALS: Ht 154.9 cm; Wt 97.3 kg
[2022-03-08 14:23] LABS: HEMATOCRIT 38.1 % (36.0-47.0); HEMOGLOBIN 12.2 g/dl (12.0-15.5); MEAN CORPUSCULAR HEMOGLOBIN 29.3 pg (27.0-33.0); MEAN CORPUSCULAR VOLUME 91.4 fl (80.0-96.0); PLATELET COUNT, AUTOMATED 365 10^3/uL (150-450); RED BLOOD COUNT 4.17 10^6/uL (4.00-5.40)
[2022-03-08 14:40] LABS: ERYTHROCYTE SEDIMENTATION RATE 37 mm/hr (0-30)
[2022-03-08 15:03] LABS: BLOOD UREA NITROGEN 13 MG/DL (7-18); C REACTIVE PROTEIN QUANTITATIV 6.88 MG/DL (0.00-0.30); CARBON DIOXIDE LEVEL 28 MEQ/L (21-32); CHLORIDE LEVEL 104 MEQ/L (98-107); CREATININE FOR GFR 0.69 MG/DL (0.55-1.30); GLOMERULAR FILTRATION RATE > 60.0 (>45); GLUCOSE, FASTING 169 MG/DL (70-100); POTASSIUM SERUM 3.9 MEQ/L (3.5-5.1); SODIUM LEVEL 137 MEQ/L (136-145)
[2022-03-08] MEDS ORDERED: diphenhydrAMINE 50MG/ML VIAL (J1200) IM ONE (16:00)
[2022-03-08] MEDS ORDERED: oxyCODONE 5MG TAB PO ONE (18:25)
[2022-03-08 19:11] VITALS: BP 110/71
== END 2022-03-08 19:13 | disposition home or self-care (01) ==
LOC: EDBD 13:13 → M ED 13:13
DX: I82.402 Acute embolism and thrombosis of unspecified deep veins of left lower extremity (principal); F41.9 Anxiety disorder, unspecified; F32.A Depression, unspecified; E11.9 Type 2 diabetes mellitus without complications; I10 Essential (primary) hypertension; G43.909 Migraine, unspecified, not intractable, without status migrainosus; Z86.79 Personal history of other diseases of the circulatory system; Z88.0 Allergy status to penicillin; Z88.4 Allergy status to anesthetic agent
CPT/HCPCS: 80048; 85027; 85652; 86140; 93971; 96372; 99284; J1200

== ENCOUNTER 2022-04-02 09:53 | Emergency (ER) | payer MEDICARE ==
[~2022-04-02] VITALS: Ht 154.9 cm; Wt 97.3 kg
[2022-04-02] MEDS ORDERED: ENOX100I3 (10:29)
[2022-04-02] MEDS ORDERED: PREG25CA2 (10:29)
[2022-04-02] MEDS ORDERED: METH4PACK (10:29)
[2022-04-02] MEDS ORDERED: HYDR-3713 (10:29)
[2022-04-02] MEDS ORDERED: METOPROLOL SUCC (TopROL XL) 100MG *XL* TAB PO ONE (10:30)
[2022-04-02] MEDS ORDERED: MORPHINE 2 MG/ML 1ML VIAL IV ONE (10:30)
[2022-04-02 10:47] VITALS: BP 114/55
[2022-04-02 11:00] LABS: EOS % 0.4 % (0.0-3.0); HEMATOCRIT 37.7 % (36.0-47.0); HEMOGLOBIN 11.6 g/dl (12.0-15.5); LYMPH # 0.5 10^3/uL (1.5-5.0); LYMPH % 5.7 % (24.0-44.0); MEAN CORPUSCULAR HEMOGLOBIN 30.7 pg (27.0-33.0); MEAN CORPUSCULAR HGB CONC 30.8 g/dl (32.0-36.5); MEAN CORPUSCULAR VOLUME 99.7 fl (80.0-96.0); MONO # 0.7 10^3/uL (0.0-0.8); MONO % 9.5 % (2.0-8.0); NEUTROPHILS # 6.6 10^3/uL (1.5-8.5); NEUTROPHILS % 83.6 % (36.0-66.0); PLATELET COUNT, AUTOMATED 225 10^3/uL (150-450); RED BLOOD COUNT 3.78 10^6/uL (4.00-5.40); WHITE BLOOD COUNT 7.8 10^3/uL (4.0-10.0)
[2022-04-02 11:17] LABS: INR 1.05; PROTHROMBIN TIME 14.1 SECONDS (12.7-14.5)
[2022-04-02 11:18] LABS: PARTIAL THROMBOPLASTIN TIME 47.3 SECONDS (25.9-37.0)
[2022-04-02 11:44] LABS: RSV AMPLIFICATION NEGATIVE (NEGATIVE)
[2022-04-02] MEDS ORDERED: HEPARIN SOD (PORCINE) 5000UNITS/ML 1ML VIAL/SYRINGE IV ONE (11:50)
[2022-04-02] MEDS ORDERED: HEPARIN SOD (PORCINE) 5000UNITS/ML 1ML VIAL/SYRINGE IV PRN (11:50)
[2022-04-02] MEDS ORDERED: HEPARIN DRIP 25,000 UNITS in IV 1 EA IV SCH (11:50)
[2022-04-02] MEDS ORDERED: DIGOXIN INJ 0.5 MG/2 ML AMP (J1160) IV ONE ×2 (11:55→14:35)
[2022-04-02] MEDS: MORPHINE 2 MG/ML 1ML VIAL IV PRN ×2 (11:59→14:01)
[2022-04-02 12:54] LABS: ALBUMIN 2.1 GM/DL (3.2-5.2); ALT/SGPT 8 U/L (12-78); BILIRUBIN,DIRECT 0.1 MG/DL (0.0-0.2); BILIRUBIN,TOTAL 0.4 MG/DL (0.2-1.0); BLOOD UREA NITROGEN 17 MG/DL (7-18); CARBON DIOXIDE LEVEL 26 MEQ/L (21-32); CHLORIDE LEVEL 104 MEQ/L (98-107); CREATININE FOR GFR 0.51 MG/DL (0.55-1.30); GLOMERULAR FILTRATION RATE > 60.0 (>45); GLUCOSE, FASTING 156 MG/DL (70-100); POTASSIUM SERUM 3.8 MEQ/L (3.5-5.1); SODIUM LEVEL 136 MEQ/L (136-145); TOTAL PROTEIN 5.7 GM/DL (6.4-8.2)
[2022-04-02] MEDS: fentaNYL 100 MCG/2 ML INJECTION IV PRN ×2 (16:04→17:35)
[2022-04-02] MEDS ORDERED: fentaNYL 100 MCG/2 ML INJECTION IV PRN (18:25)
[2022-04-02 20:29] VITALS: BP 114/60
== END 2022-04-02 20:32 | disposition short-term general hospital (02) ==
LOC: M ED 09:53 → EDBD 09:53 → M ED 20:32
DX: I48.0 Paroxysmal atrial fibrillation (principal); I82.402 Acute embolism and thrombosis of unspecified deep veins of left lower extremity; C55 Malignant neoplasm of uterus, part unspecified; E78.5 Hyperlipidemia, unspecified; I10 Essential (primary) hypertension; F32.A Depression, unspecified; Z86.79 Personal history of other diseases of the circulatory system; Z88.0 Allergy status to penicillin; Z88.4 Allergy status to anesthetic agent; Z79.811 Long term (current) use of aromatase inhibitors; Z79.899 Other long term (current) drug therapy
CPT/HCPCS: 71045; 80048; 80076; 85025; 85610; 85730; 87631; 93005; 93041; 93971; 94760; 96374; 96375; 96376; 99285; J1160; J1644; J2270; J3010